=== PATIENT | male | born 1990 | race Caucasian/White ===

== ENCOUNTER → 2016-11-21 | Outpatient (CLI) | payer OTHER ==
--- NOTE | 2016-11-21 10:43 | DIAGNOSTIC IMAGING REPORT ---
DOPPLER ULTRASOUND OF THE RENAL ARTERIES CLINICAL HISTORY: Hypertension. COMPARISON STUDY: No priors. TECHNIQUE: Doppler sonography of the renal arteries was performed to assess renal artery stenosis. Images are reviewed in the transverse and longitudinal planes. FINDINGS: The kidneys appear normal in size and echotexture. The right kidney measures 8.2 cm in length and the left kidney measures 12.2 cm in length. There is no hydronephrosis. On the right, intrarenal arterial resistive indices range from 0.43 to 0.51. Intrarenal arterial waveforms are normal with brisk upstrokes. The proximal right renal artery is not well visualized. The right renal arterial waveform is normal, and velocities within the right renal artery measure up to 81 cm/sec. The right renal vein is patent. On the left, intrarenal arterial resistive indices range from 0.47 to 0.50. Intrarenal arterial waveforms are normal with brisk upstrokes. Only the distal left renal artery as visualized. The proximal to mid portions were not seen. The left renal arterial waveform is normal, and velocities within the left renal artery measure up to 51 cm/sec. The left renal vein is patent. The abdominal aorta is not well visualized. IMPRESSION: 1. There is no sonographic evidence of renal artery stenosis, noting nonvisualization of the proximal right renal artery as well as the proximal to mid portions of the left renal artery. 2. The left kidney appears slightly larger than the right. This is of indeterminant significance. There is no hydronephrosis. Electronically signed by: Roberto Ortez M.D. 11/21/2016 10:42 AM Dictated Date/Time: 11/21/2016 10:39 AM
[2016-11-21 11:06] LABS: URINE APPEARANCE CLEAR (CLEAR); URINE BILIRUBIN NEG (NEG); URINE COLOR YELLOW; URINE EPITHELIAL CELL AUTO >30 /lpf (0-5); URINE NITRITE NEG (NEG); URINE PH 6.5 (4.5-7.5); URINE SPECIFIC GRAVITY 1.021 (1.000-1.030); UROBILINOGEN NEG (NEG)
[2016-11-21 11:17] LABS: MANUAL MICROSCOPIC REQUIRED? NO; REVIEW REQ? YES
[2016-11-21 11:30] LABS: BLOOD UREA NITROGEN 14 mg/dl (7-18); BUN/CREATININE RATIO 15.1 (10-20); CALCIUM 9.1 mg/dl (8.5-10.1); CARBON DIOXIDE 30 mmol/L (21-32); CHLORIDE 106 mmol/L (98-107); CREATININE 0.94 mg/dl (0.60-1.40); GLUCOSE 87 mg/dl (70-99); POTASSIUM 3.8 mmol/L (3.5-5.1); SODIUM 141 mmol/L (136-145)
[2016-11-21 11:38] LABS: RATIO 14.6 mcg/mg (0-30.0)
[2016-11-21 11:41] LABS: PHOSPHORUS 1.7 mg/dl (2.5-4.9); URIC ACID 4.8 mg/dl (2.6-7.2)
== END | disposition home or self-care (01) ==
LOC: C.ULTR 09:39
PROVIDERS: ATTEND Internal Medicine Nephrology
DX: I10 Essential (primary) hypertension (principal)

== ENCOUNTER → 2016-12-08 | Outpatient (CLI) | payer OTHER ==
[2016-12-08 13:55] LABS: CHOLESTEROL/HDL RATIO 2.7
== END | disposition home or self-care (01) ==
LOC: C.LABBC 11:31
PROVIDERS: ATTEND Family Medicine
DX: Z13.220 Encounter for screening for lipoid disorders (principal)

== ENCOUNTER → 2017-01-06 | Outpatient (CLI) | payer OTHER ==
[2017-01-06 18:00] LABS: BLOOD UREA NITROGEN 12 mg/dl (7-18); BUN/CREATININE RATIO 10.8 (10-20); CALCIUM 9.3 mg/dl (8.5-10.1); CARBON DIOXIDE 34 mmol/L (21-32); CHLORIDE 104 mmol/L (98-107); GLUCOSE 97 mg/dl (70-99); PHOSPHORUS 3.5 mg/dl (2.5-4.9); POTASSIUM 3.5 mmol/L (3.5-5.1); SODIUM 141 mmol/L (136-145)
== END ==
LOC: C.LAB1850 16:59
PROVIDERS: ATTEND Internal Medicine Nephrology
DX: I10 Essential (primary) hypertension (principal)